=== PATIENT | female | born 1965 | race Caucasian/White ===

== ENCOUNTER 2017-10-05 18:03 | Emergency (ER) | payer BC ==
[2017-10-05 18:07] VITALS: TEMP 97.9
[2017-10-05 18:41] LABS: PLATELET COUNT 340 10^3/uL (150-400)
--- NOTE | 2017-10-05 18:44 | EDPHY ---
H & P Stated Complaint: abd pain Time Seen by Provider: 10/05/17 18:20 HPI/ROS: CHIEF COMPLAINT: Epigastric pain x1 week HISTORY OF PRESENT ILLNESS: 52-year-old female generally healthy complaining of intermittent epigastric discomfort for the past 1 week. Is unable to discern definitive pattern of exacerbating or alleviating factors. Denies chronic NSAID use. Denies alcohol or caffeinated beverages use. Denies radiation of symptoms such as radiation to back, shoulder, arm. Denies chest pain. Denies dyspnea. Denies nausea or vomiting. Bowel movements have been normal. 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 Appears to be in no acute distress. 2) HEAD: Normocephalic, atraumatic 3) HEENT: Pupils equal, round, reactive to light bilaterally. Sclera anicteric. Nasopharynx, oropharynx, clear, no lesions. 4) NECK: Full range of motion, no meningeal signs no carotid bruit 5) LUNGS: Clear auscultation bilaterally, no wheezes, no rhonchi, no retractions. 6) HEART: Regular rate and rhythm, no murmur, no heave, no gallop. 7) ABDOMEN: No guarding, tender to palpation epigastrium with positive Shirley sign, negative McBurney's, negative Rovsing's, negative peritoneal sign, 8) MUSCULOSKELETAL: Moving all extremities, no focal areas of tenderness, no obvious trauma. No peripheral edema or discoloration. 9) BACK: No CVA tenderness, no midline vertebral tenderness, no fluctuance, no step-off, no obvious trauma, no visual or palpable abnormality. 10) SKIN: No rash, no petechiae. 11) Psychiatric: Patient is oriented X 3, there is no agitation. DIFFERENTIAL DIAGNOSIS: In no particular order, including but not limited to biliary colic, cholecystitis, NV, peptic ulcer disease, pancreatitis, and gastroenteritis. This is a partial list of diagnoses considered. These considerations are based on history, physical exam, past history and reassessment. - Personal History LMP (Females 10-55): IUD In Place Current Tetanus/Diphtheria Vaccine: Unsure Current Tetanus Diphtheria and Acellular Pertussis (TDAP): Unsure - Medical/Surgical History Hx Asthma: No Hx Chronic Respiratory Disease: No Hx Diabetes: No Hx Cardiac Disease: No Hx Renal Disease: No Hx Cirrhosis: No Hx Alcoholism: No Hx HIV/AIDS: No Hx Splenectomy or Spleen Trauma: No - Social History Smoking Status: Never smoked Constitutional: Initial Vital Signs Temperature (C) 36.6 C 10/05/17 18:04 Heart Rate 70 10/05/17 18:04 Respiratory Rate 16 10/05/17 18:04 Blood Pressure 130/92 H 10/05/17 18:04 O2 Sat (%) 94 10/05/17 18:04 O2 Delivery Mode Room Air Allergies/Adverse Reactions: No Known Allergies Allergy (Unverified 10/25/11 12:57) Home Medications: Medication Instructions Recorded Pantoprazole Sodium [Protonix 40mg 40 mg PO DAILY #30 tab 10/05/17 (RX)] Ranitidine HCl [Zantac 75] 75 mg PO BID #30 tablet 10/05/17 Medical Decision Making - Diagnostics Imaging Results: Imaging Impressions Abdomen Ultrasound 10/05/17 18:36 Impression: Negative right upper quadrant sonogram. Results called to Rogelio Elizabeth PA-C at the time of the interpretation. Chest X-Ray 10/05/17 18:36 Impression: Normal chest. E images reviewed by myself ED Course/Re-evaluation: The patient was re-evaluated with serial examinations was recently at 8:03 p.m.. I discussed with the patient her diagnostic studies including normal chest x-ray, normal ultrasound, normal troponin, normal lipase, normal LFTs Discussed with the patient I think that acute cholecystitis, acute pancreatitis , NV, less than likely in this patient at this time. We discussed possible etiologies for symptoms including, but not limited to, peptic ulcer disease. At this time I do not think that further diagnostic studies are indicated from the emergency department. Recommend starting on a proton pump inhibitor, recommend follow up with primary care provider and with Gastroenterology and given this referral information. All questions and concerns addressed by myself. Patient feels comfortable being discharged. Care of patient under supervision of secondary supervising physician Dr Hernandez . - Data Points Laboratory Results: Laboratory Results 10/05/17 18:30 18 18:30 18 10/05/17 10/05/17 18:30 18:30 18:30 WBC 6.08 10^3/uL 10^3/uL (3.80-9.50) RBC 4.98 10^6/uL 10^6/uL (4.18-5.33) Hgb 15.9 g/dL g/dL (12.6-16.3) Hct 45.7 % % (38.0-47.0) MCV 91.8 fL fL (81.5-99.8) MCH 31.9 pg pg (27.9-34.1) MCHC 34.8 g/dL g/dL (32.4-36.7) RDW 12.5 % % (11.5-15.2) Plt Count 340 10^3/uL 10^3/uL (150-400) MPV 9.0 fL fL (8.7-11.7) Neut % (Auto) 54.0 % % (39.3-74.2) Lymph % (Auto) 38.7 % % (15.0-45.0) [place] % (Auto) 5.4 % % (4.5-13.0) Eos % (Auto) 1.2 % % (0.6-7.6) Baso % (Auto) 0.5 % % (0.3-1.7) Nucleat RBC Rel Count 0.0 % % (0.0-0.2) Absolute Neuts (auto) 3.29 10^3/uL 10^3/uL (1.70-6.50) Absolute Lymphs (auto) 2.35 10^3/uL 10^3/uL (1.00-3.00) Absolute Monos (auto) 0.33 10^3/uL 10^3/uL (0.30-0.80) Absolute Eos (auto) 0.07 10^3/uL 10^3/uL (0.03-0.40) Absolute Basos (auto) 0.03 10^3/uL 10^3/uL (0.02-0.10) Absolute Nucleated RBC 0.00 10^3/uL 10^3/uL (0-0.01) Immature Gran % 0.2 % % (0.0-1.1) Immature Gran # 0.01 10^3/uL 10^3/uL (0.00-0.10) Sodium 142 mEq/L mEq/L (135-145) Potassium 4.0 mEq/L mEq/L (3.5-5.2) Chloride 102 mEq/L mEq/L (97-110) Carbon Dioxide 28 mEq/l mEq/l (22-31) Anion Gap 12 mEq/L mEq/L (8-16) BUN 9 mg/dL mg/dL (7-23) Creatinine 0.6 mg/dL mg/dL (0.6-1.0) Estimated GFR > 60 Glucose 86 mg/dL mg/dL (70-100) Calcium 10.4 mg/dL mg/dL (8.5-10.4) Total Bilirubin 1.0 mg/dL mg/dL (0.1-1.4) Conjugated Bilirubin 0.2 mg/dL mg/dL (0.0-0.5) Unconjugated Bilirubin 0.8 mg/dL mg/dL (0.0-1.1) AST 43 IU/L IU/L (14-46) ALT 49 IU/L IU/L (9-52) Alkaline Phosphatase 138 IU/L H IU/L (38-126) Troponin I < 0.012 ng/mL ng/mL (0.000-0.034) Total Protein 7.8 g/dL g/dL (6.3-8.2) Albumin 4.6 g/dL g/dL (3.5-5.0) Lipase 121 IU/L IU/L (23-300) Beta HCG, Qual NEGATIVE Departure - Departure Disposition: Home, Routine, Self-Care Clinical Impression: Epigastric pain Condition: Good Instructions: Epigastric Pain (ED) Additional Instructions: Seek immediate medical attention if you develop new or worsening symptoms, if you develop fevers, chills, chest pain, shortness of breath, inability to tolerate oral intake or any other symptoms that concerns you. Referrals: Latha Mccray MD [Primary Care Provider] - 1-2 days without fail Amna Zapata MD [Medical Doctor] - 5-7 days, call for appt. (Dr. 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
--- NOTE | 2017-10-05 18:55 | CPEKG ---
Heart Rate: 61 RR Interval: 984 P-R Interval: 115 QRSD Interval: 80 QT Interval: 404 QTC Interval: 407 P [place]: -23 QRS [place]: 66 T Wave [place]: 23 EKG Severity - ABNORMAL ECG - EKG Impression: SINUS RHYTHM EKG Impression: EVAN, CONSIDER BIATRIAL ABNORMALITIES Electronically Signed By: Amelie Hernandez 05-Oct-2017 19:45:31
[2017-10-05 19:56] VITALS: BP 125/74; PULSE 65; RESP 18; O2SAT 95
[2017-10-05] MEDS ORDERED: LIDOCAINE 2% VISCOUS 15 ML UDCUP PO ONE (20:17)
[2017-10-05] MEDS ORDERED: MAG HYDROX/AL HYDROX/SIMETH 30 ML UDCUP PO ONE (20:17)
[2017-10-05] MEDS ORDERED: HYOSCYAMINE SULFATE 0.125 MG TAB PO ONE (20:17)
[2017-10-05] MEDS ORDERED: MAG HYDROX/AL HYDROX/SIMETH 30 ML UDCUP ONE (20:27)
== END 2017-10-05 20:52 | disposition home or self-care (01) ==
DX: R10.13 Epigastric pain (principal)

== ENCOUNTER → 2018-08-31 | Outpatient (CLI) | payer BC | LOC: BMCIMAGING 13:22 | PROVIDERS: ATTEND Obstetrics & Gynecology | DX: Z12.31 Encounter for screening mammogram for malignant neoplasm of breast (principal); Z13.820 Encounter for screening for osteoporosis; M85.89 Other specified disorders of bone density and structure, multiple sites ==